=== PATIENT | male | born 1985 ===

== ENCOUNTER → 2019-04-30 17:05 | Outpatient (CLI) | payer OTHER, SELFPAY ==
--- NOTE | 2019-04-30 17:13 | DI.RAD.S_ITS ---
PROCEDURE: XR WRIST RT MIN 3V INDICATIONS: wrist pain TECHNIQUE: 4 views of the wrist were acquired. COMPARISON: Same date right hand radiographs.. FINDINGS: Bones: No fractures or dislocations. No suspicious bony lesions. Scaphoid view: Normal. Soft tissues: No suspicious soft tissue calcifications. IMPRESSION: No acute osseous abnormality. Dictated by: Tom Serrano M.D. on 04/30/2019 at 18:22 Approved by: Tom Serrano M.D. on 04/30/2019 at 18:24
--- NOTE | 2019-04-30 17:13 | DI.RAD.S_ITS ---
PROCEDURE: XR HAND RT MIN 3V INDICATIONS: r wrist pain TECHNIQUE: 3 views of the hand(s) acquired. COMPARISON: Same date wrist radiographs. FINDINGS: Bones: No fractures or dislocations. Carpal bones are normally aligned. No suspicious bony lesions. Soft tissues: No suspicious soft tissue calcifications. IMPRESSION: No acute osseous abnormality. Dictated by: Tom Serrano M.D. on 04/30/2019 at 18:24 Approved by: Tom Serrano M.D. on 04/30/2019 at 18:24
== END ==
PROVIDERS: Visit Provider Physician Assistant
DX: M25.531 Pain in right wrist (principal)
CPT/HCPCS: 73110; 73130

== ENCOUNTER → 2020-12-17 09:56 | Outpatient (CLI) | payer OTHER, SELFPAY ==
[2020-12-17 10:44] LABS: COVID19 -Nasal RAPID Negative (Negative)
== END ==
PROVIDERS: Visit Provider Physician Assistant
DX: R13.10 Dysphagia, unspecified (principal); Z20.822 Contact with and (suspected) exposure to COVID-19
CPT/HCPCS: 87070; 87635